=== PATIENT | female | born 1990 | race Two or more races ===

== ENCOUNTER 2018-02-23 12:00 | Observation (INO) | payer SELFPAY ==
[2018-02-23 12:50] LABS: Urine Amorphous Crystal FEW /hpf (None Seen); Urine Bacteria MOD /hpf (None Seen); Urine Blood Negative /uL (Negative); Urine Mucus FEW (None Seen); Urine Specific Gravity 1.011 (1.001-1.035); Urine WBC 92 /hpf (0 - 5)
[2018-02-23] MEDS ORDERED: PREN-96 PO (13:07)
[2018-03-02] MEDS ORDERED: PREN-96 PO (06:42)
== END 2018-02-23 13:18 | disposition home or self-care (01) | DRG 781 ==
LOC: LDRP 12:00
PROVIDERS: ADMIT Obstetrics & Gynecology; ATTEND Obstetrics & Gynecology
DX: O62.9 Abnormality of forces of labor, unspecified (principal); O26.893 Other specified pregnancy related conditions, third trimester; R10.9 Unspecified abdominal pain; Z3A.38 38 weeks gestation of pregnancy
CPT/HCPCS: 59025; 81001; 81002; G0378

== ENCOUNTER 2023-05-20 04:45 | Inpatient (IN) | payer MEDICAID ==
[~2023-05-20] VITALS: Ht 165.1 cm; Wt 102.1 kg
[~2023-05-20 04:45] MED LIST: PREN-96 PO
[2023-05-20 06:49] LABS: INR 0.93 (0.9-1.15); Partial Thromboplastin Time 28.6 SEC (24.5-34.5); Prothrombin Time 9.8 sec (9.3-11.8)
[2023-05-20 07:07] LABS: Protein, Urine 12.9 mg/dL (0.0-11.9)
[2023-05-20 07:08] LABS: Urine Bacteria FEW /hpf (None Seen); Urine Blood 1+ /uL (Negative); Urine Clarity HAZY (Clear); Urine Color Straw (Yellow); Urine Protein, UAD Negative (Negative); Urine Urobilinogen Normal (Negative); Urine WBC 28 /hpf (0 - 5)
[2023-05-20 07:09] LABS: Alanine Aminotransferase 15 U/L (7-40); Albumin 3.8 g/dL (3.2-4.8); Alkaline Phosphatase 220 U/L (46-116); Anion Gap 6.8 (5-15); Aspartate Aminotransferase 10 U/L (13-40); BUN/Creatinine Ratio 12.9 (10.0-20.0); Bilirubin, Total 0.4 mg/dL (0.2-1.0); Blood Urea Nitrogen 8 mg/dL (9-23); Calcium 9.1 mg/dL (8.5-10.1); Carbon Dioxide 20.2 mmol/L (20-30); Chloride 108 mmol/L (98-107); Glucose 100 mg/dL (74-106); Sodium 135 mmol/L (136-145); Total Protein 6.8 g/dL (5.7-8.2); Uric Acid 4.1 mg/dL (3.1-7.8)
[2023-05-20 07:09] LABS: Amphetamine Screen, Urine Neg (NEGATIVE); Barbiturate Scree,Urine Neg (NEGATIVE); Benzodiazephine Screen, Urine Neg (NEGATIVE); Cocaine Screen, Urine Neg (NEGATIVE); Creatinine, Urine 32.84 mg/dL (30.0-125.0); Urine Protein/Creatinine Ratio 0.39
[2023-05-20 07:10] LABS: Cannabinoid Screen, Urine Neg (NEGATIVE); Opiate Scree,Urine Neg (NEGATIVE); Phencyclidine Screen, Urine Neg (NEGATIVE)
[2023-05-20 07:25] LABS: Basophils # (auto) 0 10 ^3/uL (0-0.2); Basophils % (auto) 0.2 % (0.0-2.0); Eosinophils # (auto) 0 10 ^3/uL (0-0.8); Eosinophils % (auto) 0.4 % (0.0-7.0); Hematocrit 34.8 % (36.0-46.0); Hemoglobin 11.8 g/dL (12.2-16.2); Lymphocytes # (auto) 1.4 10 ^3/uL (0.4-5.4); Lymphocytes % (auto) 11.8 % (10.0-50.0); Mean Corpuscular Hemoglobin 29.1 pg (28.0-32.0); Mean Corpuscular Hgb Conc. 33.9 g/dL (32.0-36.0); Mean Corpuscular Volume 85.8 fL (80.0-100.0); Monocytes # (auto) 0.8 10 ^3/uL (0-1.3); Neutrophils # (auto) 9.6 10 ^3/uL (1.6-8.6); Neutrophils % (auto) 80.6 % (37.0-80.0); Red Blood Cells 4.05 10^6/uL (4.0-5.20); Red Cell Distribution Width 14.1 % (11.8-14.3); White Blood Cell 11.9 10^3/uL (4.4-10.8)
[2023-05-20] MEDS ORDERED: PHISODERM TOP SOLN 240ML BTL TOP PRN (07:45)
[2023-05-20] MEDS ORDERED: DERMOPLAST 60ML BOTTLE TOP PRN (07:45)
[2023-05-20] MEDS ORDERED: WITCH HAZEL-GLYCERIN PAD TOP PRN (07:45)
[2023-05-20] MEDS ORDERED: LIDOCAINE 2%HCL (LOCAL ANESTH.) INJ 20ML MDV IJ PRN (07:45)
[2023-05-20] MEDS ORDERED: LACTATED RINGER'S 1,000 ML IV SCH (07:45)
[2023-05-20] MEDS ORDERED: PROMETHAZINE HCL 25 MG/ML 1ML IV PRN (07:45)
[2023-05-20] MEDS ORDERED: ePHEDrine SULFATE 50 MG/ML AMP IV ONE (08:15)
[2023-05-20] MEDS ORDERED: ROPIVACAINE HCL 200 ML EPI SCH ×2 (08:15→08:30)
[2023-05-20] MEDS ORDERED: NALOXONE HCL 0.4 MG/ML VIAL IV ONE (08:15)
[2023-05-20] MEDS ORDERED: fentaNYL CITRATE 100 MCG/2 ML VL IV ONE (08:15)
[2023-05-20] MEDS ORDERED: TERBUTALINE SULFATE 1 MG/ML 1ML VIAL SC PRN (09:00)
[2023-05-20] MEDS ORDERED: LACT. RINGERS/OXYTOCIN 20UNITS 500 ML IV ONE ×2 (09:00→09:30)
[2023-05-20] MEDS ORDERED: ACETAMINOPHEN 325 MG TAB PO PRN (09:30)
[2023-05-20] MEDS ORDERED: ONDANSETRON ODT 4 MG TAB PO PRN (09:30)
[2023-05-20] MEDS: IBUPROFEN 600 MG TAB PO PRN ×2 (10:02→21:03)
[2023-05-20 15:30] VITALS: BP 129/71; PULSE 65; RESP 16; TEMP 98.9; O2SAT 100
[2023-05-20] MEDS ORDERED: OXYTOCIN 10UNIT/ML 1ML VIAL IV ONE (18:18)
[2023-05-20 19:02] VITALS: BP 110/64; PULSE 70; RESP 16; TEMP 97.9; O2SAT 95
[2023-05-20 19:27] LABS: Urine Bacteria NONE SEEN /hpf (None Seen); Urine Blood 3+ /uL (Negative); Urine Clarity HAZY (Clear); Urine Color Red (Yellow); Urine Mucus FEW (None Seen); Urine Protein, UAD 2+ (Negative); Urine Specific Gravity 1.011 (1.001-1.035); Urine Urobilinogen Normal (Negative); Urine WBC 253 /hpf (0 - 5); Urine WBC Clumps PRESENT /hpf (None Seen)
[2023-05-20] MEDS ORDERED: IBU600T PO (19:56)
[2023-05-20] MEDS ORDERED: CEPH250C PO (19:56)
[2023-05-20] MEDS ORDERED: DOCU-265 PO (19:56)
[2023-05-20] MEDS ORDERED: ACET-1882 PO (19:56)
[2023-05-20] MEDS ORDERED: DOCUSATE SOD 100 MG CAP PO SCH (22:00)
[2023-05-20 23:05] VITALS: BP 136/64; PULSE 78; RESP 18; TEMP 98.3; O2SAT 95
[2023-05-21 02:49] VITALS: BP 122/62; PULSE 61; RESP 18; TEMP 98; O2SAT 94
[2023-05-21 06:47] LABS: Basophils # (auto) 0 10 ^3/uL (0-0.2); Basophils % (auto) 0.3 % (0.0-2.0); Eosinophils # (auto) 0 10 ^3/uL (0-0.8); Eosinophils % (auto) 0.3 % (0.0-7.0); Hematocrit 31.8 % (36.0-46.0); Hemoglobin 10.2 g/dL (12.2-16.2); Lymphocytes # (auto) 1.8 10 ^3/uL (0.4-5.4); Lymphocytes % (auto) 13.5 % (10.0-50.0); Mean Corpuscular Hemoglobin 28.1 pg (28.0-32.0); Mean Corpuscular Volume 87.6 fL (80.0-100.0); Monocytes # (auto) 0.8 10 ^3/uL (0-1.3); Monocytes % (auto) 5.8 % (0.0-12.0); Neutrophils # (auto) 10.7 10 ^3/uL (1.6-8.6); Neutrophils % (auto) 80.1 % (37.0-80.0); Nucleated Red Blood Cells % 0.1 %; Red Blood Cells 3.63 10^6/uL (4.0-5.20); Red Cell Distribution Width 14.1 % (11.8-14.3); White Blood Cell 13.4 10^3/uL (4.4-10.8)
[2023-05-21 07:00] VITALS: BP 121/58; PULSE 69; RESP 20; TEMP 98.2; O2SAT 95
[2023-05-21 07:06] LABS: RPR Non Reactive (Non Reactive)
[2023-05-21] MEDS ORDERED: FERR30CA PO (08:08)
[2023-05-21 11:00] VITALS: BP 125/62; PULSE 69; RESP 20; TEMP 98.2; O2SAT 95
[2023-05-21] MEDS ORDERED: TETANUS-DIPTH-ACEL PERTUSSIS 0.5ML SYR Tdap IM ONE (11:45)
== END 2023-05-21 12:30 | disposition home or self-care (01) | DRG 560 ==
LOC: LDRP 04:45 → OBSVTOIN 07:47 → LDRP 08:07
PROVIDERS: ADMIT Obstetrics & Gynecology; ATTEND Obstetrics & Gynecology
PROC: 10E0XZZ Delivery of Products of Conception, External Approach (ICD-10-PCS; principal; 2023-05-20)
PROC: 0KQM0ZZ Repair Perineum Muscle, Open Approach (ICD-10-PCS; 2023-05-20)
DX: O77.0 Labor and delivery complicated by meconium in amniotic fluid (principal); Z37.0 Single live birth; D64.9 Anemia, unspecified; O70.1 Second degree perineal laceration during delivery; Z3A.39 39 weeks gestation of pregnancy; O90.81 Anemia of the puerperium
CPT/HCPCS: 36415; 59025; 59409; 80053; 80307; 81001; 81002; 82570; 84156; 84550; 85025; 85610; 85730; 86592; 86850; 86900; 86901; 94760; 96360; 96361; 96365; 96366; G0378; J2590